=== PATIENT | female | born 1985 | race Native Hawaiian/Other Pacific Islander ===

== ENCOUNTER 2016-11-23 09:50 | Outpatient (CLI) | payer OTHER | END 2016-11-23 10:50 | disposition home or self-care (01) | LOC: US 09:50 | DX: E03.8 Other specified hypothyroidism (principal) ==

== ENCOUNTER 2017-03-14 08:59 | Outpatient (CLI) | payer OTHER | END 2017-03-14 19:10 | disposition home or self-care (01) | LOC: US 08:59 | DX: I10 Essential (primary) hypertension (principal) ==

== ENCOUNTER 2019-09-13 10:44 | Outpatient (CLI) | payer OTHER | END 2019-09-13 19:51 | disposition home or self-care (01) | LOC: US 10:44 | DX: E06.3 Autoimmune thyroiditis (principal) ==

== ENCOUNTER 2022-08-11 08:46 | Outpatient (CLI) | payer BC | END 2022-08-11 19:02 | disposition home or self-care (01) | LOC: RESP 08:46 | PROVIDERS: ATTEND Nuclear Medicine Nuclear Cardiology | DX: R07.89 Other chest pain (principal); R06.09 Other forms of dyspnea; R00.2 Palpitations; R42 Dizziness and giddiness ==

== ENCOUNTER 2022-08-29 08:11 | Outpatient (CLI) | payer BC ==
[~2022-08-29] VITALS: Ht 170.2 cm; Wt 80.7 kg
== END 2022-08-29 20:21 | disposition home or self-care (01) ==
LOC: NM 08:11
PROVIDERS: ATTEND Nuclear Medicine Nuclear Cardiology
DX: R07.89 Other chest pain (principal); R06.09 Other forms of dyspnea; R42 Dizziness and giddiness
CPT/HCPCS: A9500; J2785

== ENCOUNTER 2023-01-05 19:36 | Emergency (ER) | payer OTHER ==
[~2023-01-05] VITALS: Ht 170.2 cm; Wt 81.2 kg
[2023-01-05 19:40] VITALS: TEMP 98.4
[2023-01-05 23:08] VITALS: BP 151/94
== END 2023-01-05 23:08 | disposition home or self-care (01) ==
LOC: ED 19:36
DX: J20.9 Acute bronchitis, unspecified (principal)
CPT/HCPCS: 87502; 87651; 99283

== ENCOUNTER 2023-11-07 00:59 | Emergency (ER) | payer OTHER ==
[~2023-11-07] VITALS: Ht 170.2 cm; Wt 81.6 kg
[~2023-11-07 00:59] MED LIST: IBU600 MG PO; PERM5CRE9 TOP; PROMETHAZINE DM1 SOL PO
[2023-11-07 01:32] VITALS: TEMP 99.1
[2023-11-07 03:06] VITALS: BP 126/80
[2023-11-07] MEDS ORDERED: LEVOFLOXACIN750 MG PO (06:43)
[2023-11-08] MEDS ORDERED: LIPITOR40 MG PO (10:26)
[2023-11-08] MEDS ORDERED: ESCI10TA PO (10:27)
[2023-11-08] MEDS ORDERED: EUTHYROX137 MCG PO (10:28)
[2023-11-08] MEDS ORDERED: ZESTRIL30 MG PO (10:28)
[2023-11-08] MEDS ORDERED: PERM5CRE9 TOP (10:29)
== END 2023-11-07 03:06 | disposition home or self-care (01) ==
LOC: ED 00:59
DX: R05.9 Cough, unspecified (principal); R07.81 Pleurodynia; J18.9 Pneumonia, unspecified organism; J06.9 Acute upper respiratory infection, unspecified; F17.210 Nicotine dependence, cigarettes, uncomplicated
CPT/HCPCS: 96372; 99282; J1885